=== PATIENT | female | born 1940 | race Caucasian/White ===

== ENCOUNTER 2019-08-08 06:50 | Emergency (ER) | payer MEDICARE ==
[~2019-08-08] VITALS: Ht 162.6 cm; Wt 80.3 kg
[2019-08-08] MEDS ORDERED: WARF2.5 PO (07:15)
[2019-08-08] MEDS ORDERED: OXYB5 PO (07:15)
[2019-08-08] MEDS ORDERED: PROZ10 PO (07:15)
[2019-08-08] MEDS ORDERED: KDUR20 PO (07:15)
[2019-08-08] MEDS ORDERED: CARV12 PO (07:15)
[2019-08-08] MEDS ORDERED: ATOR10TA84 PO (07:15)
[2019-08-08] MEDS ORDERED: HYDR-4061 PO (07:15)
[2019-08-08] MEDS ORDERED: CLOP75TA3 PO (07:15)
[2019-08-08] MEDS ORDERED: CHOL100018 PO (07:15)
[2019-08-08] MEDS ORDERED: BUME1TAB34 PO (07:15)
[2019-08-08] MEDS ORDERED: MEMA10TA11 PO (07:15)
[2019-08-08] MEDS ORDERED: SODIUM CHLORIDE 0.9% 2,400 ML IV ONE (07:18)
[2019-08-08] MEDS ORDERED: 0.9% SODIUM CHLORIDE 10 ML SYRINGE IVP PRN (07:30)
[2019-08-08 07:47] LABS: BASOPHILS % (AUTO) 1.1 % (0.0-2.0); HEMATOCRIT 34.9 % (36-46); HEMOGLOBIN 11.8 g/dL (12.0-16.0); LYMPHOCYTES # (AUTO) 0.4 K/uL (1.0-4.8); LYMPHOCYTES % (AUTO) 8.3 % (22.0-44.0); MEAN CORPUSCULAR HEMOGLOBIN 33.9 pg (26.0-34.0); MEAN CORPUSCULAR VOLUME 100 fL (80-100); MONOCYTES # (AUTO) 0.7 K/uL (0.1-1.0); MONOCYTES % (AUTO) 15.1 % (2.0-9.0); NEUTROPHILS # (AUTO) 3.4 K/uL (1.8-7.7); NEUTROPHILS % (AUTO) 74.5 % (40.0-70.0); PLATELET COUNT (AUTO) 181 K/uL (150-450); RED BLOOD CELL COUNT(AUTO) 3.49 MIL/uL (4.00-5.20); RED CELL DISTRIBUTION WIDTH 15.9 % (11.5-14.5)
[2019-08-08 07:56] LABS: CALCIUM, TOTAL 8.8 mg/dL (8.8-10.5); CREATININE 1.18 mg/dL (0.60-1.30)
[2019-08-08] MEDS ORDERED: IPRATROPIUM BROMIDE 0.5 MG/2.5 ML NEB SOLUTION NEB ONE (08:00)
[2019-08-08] MEDS ORDERED: ALBUTEROL SULFATE 5 MG/ML 20 ML NEB SOLN [BULK] NEB ONE (08:00)
[2019-08-08] MEDS ORDERED: ACETAMINOPHEN 500 MG TABLET PO ONE (08:00)
[2019-08-08 08:01] LABS: INR 1.8 (0.9-1.1); PROTHROMBIN TIME 18.1 SEC (9.4-11.6)
[2019-08-08 08:02] LABS: BILIRUBIN,TOTAL 1.4 mg/dL (0.1-1.0); TOTAL PROTEIN, SERUM 7.9 g/dL (6.4-8.2)
[2019-08-08] MEDS ORDERED: 0.9% SODIUM CHLORIDE 5 ML NEB SOLUTION NEB ONE (08:05)
[2019-08-08 08:08] LABS: LACTIC ACID 1.5 mmol/L (0.4-2.0)
[2019-08-08 09:06] LABS: APPEARANCE,URINE CLOUDY (CLEAR); BILIRUBIN,URINE NEGATIVE (NEGATIVE); GLUCOSE, URINE (UA) NEGATIVE (NEGATIVE); KETONES,URINE NEGATIVE (NEGATIVE); LEUKOCYTE ESTERASE ,URINE SMALL (NEGATIVE); NITRATE,URINE NEGATIVE (NEGATIVE); OCCULT BLOOD,URINE MODERATE (NEGATIVE); PH,URINE 7.5 (5.0-8.0); PROTEIN,URINE TRACE (NEGATIVE)
[2019-08-08 09:21] LABS: BACTERIA,URINE Few /HPF (None Seen); SQUAMOUS EPITHELIAL CELL,UR Few /LPF (None Seen)
[2019-08-08] MEDS ORDERED: AZITHROMYCIN 500 MG/NS 250 ML IV ONE (09:30)
[2019-08-08] MEDS ORDERED: CefTRIAXone 1 GM/DEXTROSE 50 ML IV ONE (09:30)
[2019-08-08 09:31] LABS: INFLUENZA TYPE A NEGATIVE FOR TYPE A (NEGATIVE); INFLUENZA TYPE B NEGATIVE FOR TYPE B (NEGATIVE)
[2019-08-08] MEDS ORDERED: IBUPROFEN 600 MG TABLET PO ONE (12:30)
[2019-08-08 13:30] VITALS: BP 151/83
[2019-08-08] MEDS ORDERED: ACETAMINOPHEN 1000 MG/ISO-OSM 100 ML IV ONE (13:30)
== END 2019-08-08 14:55 | disposition short-term general hospital (02) ==
LOC: EMS 06:50
DX: J18.9 Pneumonia, unspecified organism (principal); I48.91 Unspecified atrial fibrillation; I11.0 Hypertensive heart disease with heart failure; I50.9 Heart failure, unspecified; F03.90 Unspecified dementia, unspecified severity, without behavioral disturbance, psychotic disturbance, mood disturbance, and anxiety; E78.00 Pure hypercholesterolemia, unspecified; Z98.890 Other specified postprocedural states; Z79.899 Other long term (current) drug therapy
CPT/HCPCS: 36415; 71045; 80053; 81001; 83605; 83880; 84145; 84484; 85025; 85610; 85730; 87040; 87077; 87086; 87186; 87804; 93005; 94644; 96365; 96366; 96367; 96368; 99291; J0131; J0456; J0696; J7030; 51702